=== PATIENT | female | born 1965 | race Caucasian/White ===

== ENCOUNTER 2016-05-27 13:34 | Outpatient (CLI) | payer OTHER ==
--- NOTE | 2016-05-27 15:03 | Mammography Report ---
LEFT DIGITAL DIAGNOSTIC MAMMOGRAM: 05/27/16 13:34:00 CLINICAL: For clip placement immediately status post ultrasound biopsy. COMPARISON:05/06/16 FINDINGS: A biopsy clip is now identified within the low density mass at 12 o'clock. IMPRESSION: Concordant clip placement status post ultrasound biopsy. BI-RADS CATEGORY: 4--Suspicious Pathology pending.
--- NOTE | 2016-05-27 15:12 | Ultrasound Report ---
ULTRASOUND GUIDED NEEDLE CORE BIOPSY LEFT BREAST WITH CLIP PLACEMENT: 05/27/16 CLINICAL: Left breast mass. COMPARISON :05/15/16 FINDINGS: The procedure was explained to the patient and informed consent was obtained. Ultrasound demonstrated the previously described solid mass at 12 o'clock 4 cm from the nipple. I marked the breast with a felt tip marker and a time out was called. The skin was prepped with Betadine and anesthetized with 1% lidocaine. Needle core biopsy was performed through a tiny dermatotomy using ultrasound guidance, 2% lidocaine with epinephrine for deep anesthesia and a 14-gauge Achieve biopsy device. Imaging demonstrated satisfactory sampling. Multiple cores were obtained and placed in formalin. A hydro-thad clip was then placed within the mass. The patient tolerated the procedure well and there were no apparent complications. Hemostasis was achieved with gentle pressure and a sterile dressing was applied. A two view mammogram concordant placement of the clip. She left the department in good condition and was given instructions for wound care and followup. IMPRESSION: Uncomplicated ultrasound guided needle core biopsy with clip placement left breast.
== END 2016-05-27 13:35 | disposition home or self-care (01) ==
LOC: SPVWC 13:34
PROVIDERS: ATTEND Obstetrics & Gynecology
DX: N63 Unspecified lump in breast (principal)
CPT/HCPCS: 19083; A4648; G0206; 88307